=== PATIENT | male | born 1970 | race American Indian/Alaskan Native ===

== ENCOUNTER 2017-07-25 09:33 | Emergency (ER) | payer OTHER, MEDICAID ==
[2017-07-25 09:43] VITALS: BP 164/104; PULSE 67; RESP 16; TEMP 98.2; O2SAT 93
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
== END 2017-07-25 10:32 | disposition home or self-care (01) ==
LOC: EDUNIT#
DX: H53.8 Other visual disturbances (principal); F19.10 Other psychoactive substance abuse, uncomplicated; I10 Essential (primary) hypertension; F17.200 Nicotine dependence, unspecified, uncomplicated

== ENCOUNTER 2017-11-15 20:21 | Emergency (ER) | payer OTHER, MEDICAID ==
[2017-11-15 20:30] VITALS: BP 129/84; PULSE 78; RESP 16; TEMP 97.5; O2SAT 95
[2017-11-15] MEDS ORDERED: IBUPROFEN 600 MG TAB PO ONE (21:05)
--- NOTE | 2017-11-15 21:05 | EDPHY ---
H & P HPI/ROS: Chief complaint: Left foot injury History of present illness: This is a 47-year-old male who presents to the emergency department for a left foot injury. Patient reports earlier today he dropped a TV on his foot while moving it. Since then he has had pain. Worse with movement. He denies associated signs or symptoms. No open wounds. No abnormal coolness or paresthesias in the foot. No other trauma reported. Smoking Status: Current every day smoker Physical Exam: General: Alert, nontoxic Skin: No lesions consistent with trauma to the right foot Musculoskeletal: Tenderness over the dorsum of the foot. No crepitus or bony deformity. The rest of the foot and ankle are nontender. He is moving the ankle well in the digits of the foot well. Vascular: DP and PT pulses 2+. Neurologic: Sensation intact throughout the right foot. Constitutional: Initial Vital Signs Temperature (C) 36.4 C 11/15/17 20:26 Heart Rate 78 11/15/17 20:26 Respiratory Rate 16 11/15/17 20:26 Blood Pressure 129/84 H 11/15/17 20:26 O2 Sat (%) 95 11/15/17 20:26 Allergies/Adverse Reactions: No Known Allergies Allergy (Verified 11/15/17 20:31) Home Medications: Medication Instructions Recorded No Medications [No Known] 1 [facility] 12/22/12 MDM/Departure - MDM Imaging Results: Imaging Impressions Foot X-Ray 11/15/17 20:44 Impression: Negative. No acute fracture. Imaging: I viewed and interpreted images myself Medications Given: Discontinued Medications Ibuprofen (Motrin) 600 mg PO EDNOW ONE Stop: 11/15/17 21:06 Last Admin: 11/15/17 21:14 Dose: Not Given ED Course/Re-evaluation: Patient seen under the supervision of my secondary supervising physician Dr. Russ Bose. Patient presents to the emergency department for a left foot injury. The foot is neurovascularly intact. X-rays are negative. Likely a contusion. He is treated with ibuprofen. Home care is discussed. Return precautions are given. - Depart Disposition: Home, Routine, Self-Care Clinical Impression: Foot contusion Qualifiers: Encounter type: initial encounter Laterality: right Qualified Code(s): S90.31XA - Contusion of right foot, initial encounter Condition: Good Instructions: Contusion in Adults (ED) Additional Instructions: Follow-up with the primary care doctor for recheck Use [id number] ibuprofen 600 mg 3 times a day for the next 2-3 days as needed for pain If symptoms worsen or new symptoms develop return to the emergency room for recheck Referrals: [facility] [Other] - As per Instructions
== END 2017-11-15 21:10 | disposition home or self-care (01) ==
DX: S90.31XA Contusion of right foot, initial encounter (principal); F17.200 Nicotine dependence, unspecified, uncomplicated; W20.8XXA Other cause of strike by thrown, projected or falling object, initial encounter; Y93.F2 Activity, caregiving, lifting

== ENCOUNTER 2018-06-04 13:00 | Emergency (ER) | payer OTHER, MEDICAID ==
--- NOTE | 2018-06-04 13:56 | EDPHY ---
H & P Time Seen by Provider: 06/04/18 13:55 HPI/ROS: Chief complaint. Right ear pain HPI. 47-year-old male presents emergency department with 5 day history right ear pain. He had a recent upper respiratory infection that is now resolving but now has had pain in his ear. He has been using hydrogen peroxide and water in his ear without relief. No fever. History of ear infections. No recent swimming or significant water immersion. No pain with moving the external ear. No sore throat, cough, chest discomfort, abdominal pain. ROS Constitutional. no fever/chills, no weakness Eyes. no problems with vision ENT. Right ear pain Cardiovascular. no chest pain Respiratory. no shortness of breath, no cough Abdominal. no abdominal pain, no nausea/vomiting, no diarrhea . no problems urinating MS. no calf pain/swelling, no neck/back pain, no joint pain Skin. no rash Lymph. no swollen glands Neuro. no headache, no dizziness, no difficulty walking or with speech Past Medical/Surgical History: Schizoaffective disorder, bipolar, arthritis, hypertension, TBI, appendectomy Social History: Single, daily smoker, recent alcohol Smoking Status: Current every day smoker Physical Exam: General Appearance: Alert well-developed male mild distress vital signs are stable. Afebrile Eyes: Pupils equal and round no pallor or injection. ENT, right tympanic membrane erythematous. Canal is normal. Left ear is normal. Pharynx without injection Respiratory: There are no retractions, lungs are clear to auscultation. Cardiovascular: Regular rate and rhythm. Gastrointestinal: Abdomen is soft and nontender, no masses, bowel sounds normal. Neurological: Awake and alert, sensory and motor exams grossly normal. Skin: Warm and dry, no rashes. Musculoskeletal: Neck is supple nontender. Extremities symmetrical, full range of motion. Psychiatric: Patient is oriented X 3, there is no agitation. Constitutional: Initial Vital Signs Temperature (C) 36.7 C 06/04/18 13:08 Heart Rate 69 06/04/18 13:08 Respiratory Rate 16 06/04/18 13:08 Blood Pressure 112/81 H 06/04/18 13:08 O2 Sat (%) 95 06/04/18 13:08 O2 Delivery Mode Room Air Allergies/Adverse Reactions: No Known Allergies Allergy (Verified 06/04/18 13:10) Home Medications: Medication Instructions Recorded No Medications [No Known] 1 ea [facility] [place] 12/22/12 Amoxicillin Trihydrate [Amoxil] 500 mg PO TID 7 Days cap 06/04/18 Medical Decision Making ED Course/Re-evaluation: Patient remained stable. Patient and I discussed diagnosis, treatment plan, criteria for return, importance of follow-up and further evaluation. He expresses understanding and agreement Differential Diagnosis: Recent upper respiratory infection now with apparent otitis media. I considered otitis externa as well. Departure - Departure Disposition: Home, Routine, Self-Care Clinical Impression: Otitis media Qualifiers: Otitis media type: unspecified Chronicity: acute Qualified Code(s): H66.90 - Otitis media, unspecified, unspecified ear Condition: Good Instructions: Ear Infection (ED) Additional Instructions: Amoxicillin as antibiotic Tylenol 1000 mg every 4-6 hours, ibuprofen 600 mg every 6 hr for discomfort. Return for worsening symptoms. Recheck in 2-3 days if not improving Referrals: NONE *PRIMARY CARE P,. [Primary Care Provider] - As per Instructions [facility] [Outside] - 2-3 days, if not improved Prescriptions: Amoxicillin Trihydrate [Amoxil] 500 mg PO TID 7 Days cap
[2018-06-04 14:23] VITALS: BP 152/102
--- NOTE | 2018-06-04 18:04 | ASDISCHSUM ---
Discharge Information Plan Status:Homeless/[facility] Medically Cleared to Leave: Discharge Date:06/04/2018 02:23 PM CM D/C Disposition:Streets (Homeless) ADT D/C Disposition:Home, Routine, Self-Care Projected Discharge Date:06/04/2018 02:23 PM Transportation at D/C:None or Unknown Discharge Delay Reason: Follow-Up Date:06/04/2018 02:23 PM Discharge Slot: Final Diagnosis: Placement Information Patient Contact Information Contact Name:JORDAN Relationship:Other Address: Work Phone: City:[place] Alternate Phone: State/Zip Code:[place] Email: Financial Information Financial Class:Medicare Primary Plan Desc:MEDICARE OUTPATIENT Primary Plan Number:[id number] Secondary Plan Desc:MEDICAID [place] [place] Secondary Plan Number:[id number] Assessment Information Intervention Information
== END 2018-06-04 14:23 | disposition home or self-care (01) ==
DX: H66.91 Otitis media, unspecified, right ear (principal); I10 Essential (primary) hypertension; F17.200 Nicotine dependence, unspecified, uncomplicated

== ENCOUNTER 2018-06-24 | Emergency (ER) | payer OTHER, MEDICAID | END 2018-06-24 15:58 | disposition home or self-care (01) | PROC: 09C47ZZ Extirpation of Matter from Left External Auditory Canal, Via Natural or Artificial Opening (ICD-10-PCS; principal; 2018-06-24) | DX: T16.2XXA Foreign body in left ear, initial encounter (principal); H60.92 Unspecified otitis externa, left ear; I10 Essential (primary) hypertension; F25.9 Schizoaffective disorder, unspecified; Z59.0 Homelessness ==